=== PATIENT | male | born 1985 | race Caucasian/White ===

== ENCOUNTER 2019-05-28 16:49 | Emergency (ER) | payer SELFPAY ==
[2019-05-28] MEDS ORDERED: Ibuprofen 800 MG TAB ONE (17:20)
--- NOTE | 2019-05-28 17:24 | RAD ---
XR Shoulder Rt 3 View STANDARD History: Pain Comparison: None. Findings: There is a chronic fracture of right shunt catheter as well as a second right hemithorax sh unt catheter projecting over the neck. No acute fracture or malalignment. Visualized ribs are intact. Impression: No acute osseous normality.
== END 2019-05-28 18:10 | disposition home or self-care (01) ==
LOC: ERS 16:49
DX: M25.511 Pain in right shoulder (principal); X50.0XXA Overexertion from strenuous movement or load, initial encounter